=== PATIENT | male | born 1980 | race Caucasian/White ===

== ENCOUNTER 2018-03-05 13:18 | Emergency (ER) | payer OTHER ==
[~2018-03-05] VITALS: Ht 180.3 cm; Wt 97.5 kg
[2018-03-05] MEDS ORDERED: PRILOSEC OTC20 MG PO (13:44)
[2018-03-05] MEDS ORDERED: RANITIDINE HCL150 M1 PO (13:44)
== END 2018-03-05 14:50 | disposition home or self-care (01) ==
LOC: ED 13:18
DX: F10.239 Alcohol dependence with withdrawal, unspecified (principal); Z79.899 Other long term (current) drug therapy
CPT/HCPCS: 96374; 96375; 99282; J2060; J2405; J7120